=== PATIENT | female | born 1965 | race Caucasian/White ===

== ENCOUNTER 2016-10-01 17:21 | Emergency (ER) | payer OTHER ==
[~2016-10-01 17:21] MED LIST: DILANTIN 100 M100 MG PO; FLAGYL500 MG PO; KEPPRA XR750 MG PO; LEVAQUIN TAB 5500 MG PO; NEURONTIN800 MG PO; TOPAMAX100 MG PO
== END 2016-10-01 20:02 | disposition left against medical advice (07) ==
LOC: ER1 17:21
DX: R07.9 Chest pain, unspecified (principal); R06.02 Shortness of breath; Z53.8 Procedure and treatment not carried out for other reasons
CPT/HCPCS: 93005